=== PATIENT | male | born 1990 | race Caucasian/White ===

== ENCOUNTER 2022-05-20 08:20 | Emergency (ER) | payer MEDICAID, SELFPAY ==
[2022-05-20 08:21] VITALS: BP 198/131; PULSE 96; RESP 18; TEMP 36.6; O2SAT 96; BMI 47.5
--- NOTE | 2022-05-20 08:38 | EDS_ITS ---
HPI History of Present Illness Chief Complaint: Rash Informant: patient Narrative Narrative: 32-year-old male presenting with rash which started today. Patient was repossessing a car that was in the [place]ong. He believes he had contact with poison oak. He has had this in the past. He complains of itching and redness to left upper scalp. He is also noted rash on his left arm and lower back. No fever. No other complaints. Prior similar symptoms: Yes Recent Illness/Hospitalization: No PFSH PFSH Medical History Hx of fracture of wrist Hypertension Home Medications prednisone 10 mg tablet 10 mg PO DAILY #63 tabs 05/20/22 [Rx Last Taken Unknown] Allergy/AdvReac Type Severity Reaction Status Date / Time amoxicillin Allergy Rash Verified 05/20/22 08:24 morphine Allergy Chest Verified 05/20/22 08:24 tightness Penicillins Allergy Rash Verified 05/20/22 08:24 poison oak extract Allergy Rash Verified 05/20/22 08:24 Surgical History History of cardiac radiofrequency ablation Hx of tonsillectomy Social History Smoking Status: Unknown if ever smoked ROS ROS ED Constitutional Constitutional ED: Denies fever(s) Eyes Eyes: Denies change in vision ENT ENT ED: Denies rhinorrhea or sore throat Cardiovascular Cardiovascular: Denies chest pain or palpitations Respiratory/Chest Respiratory/Chest: Denies cough or dyspnea Gastrointestinal Gastrointestinal: Denies abdominal pain, diarrhea, nausea or vomiting Genitourinary Genitourinary ED: Denies dysuria Musculoskeletal Musculoskeletal: Denies myalgias Integumentary Reports rash Neurologic Neurologic: Denies headache(s) Psychiatric Psychiatric: Denies suicidal thoughts EXAM Physical Exam Const Vital Signs: 05/20/22 08:21 Temperature 98 F Temperature Source Temporal Pulse Rate 96 Respiratory Rate 18 Blood Pressure 198/131 H Blood Pressure Mean 153 Pulse Ox 96 Oxygen Delivery Method Room Air Positive well nourished and well developed General Appearance ED: well developed HEENT Reports normocephalic and head/scalp atraumatic HEENT Narrative: left upper forehead/frontal scalp erythematous rash consistent with poison oak Eyes PERRL and EOMs intact bilaterally Neck supple General: Negative for tenderness Chest Wall inspection of chest normal Resp normal respiratory effort and clear to auscultation bilaterally Cardio regular rate and regular rhythm GI non-tender and non-distended Palpation: soft; Negative for guarding or rebound tenderness present no CVA tenderness Extremity normal to inspection Neuro oriented x3 Sensorium / Orientation: alert Psych mental status grossly normal Skin Skin Narrative: rash left forearm and left flank, maculopapular MDM MDM MDM Narrative Medical decision making narrative: Patient was given prednisone. Repeat blood pressure 162/109. Patient states his blood pressure always runs high and he does not currently have a primary care physician. He was given Dr. Reyes international account manager for no doctor for follow-up. Advised return to ED for worsening complaints. Discharge Plan Triage Chief Complaint: Rash ED Provider: Hannah Chaves Dx/Rx/DC Orders Clinical Impression: Poison oak dermatitis Instructions: ED Poison [place] Rash Prescriptions: New prednisone 10 mg tablet 10 mg PO DAILY Qty: 63 0RF Rx Instructions: 60 mg p.o. daily ?3 days, 50 mg p.o. daily ?3 days, 40 mg p.o. daily ?3 days, 30 mg p.o. daily ?3 days, 20 mg p.o. daily ?3 days, 10 mg p.o. daily ?3 days. Primary Care Provider: Care Physician,No Primary Referrals: Jerald Reyes MD [NON-STAFF] - NOT,DEFINED [NON-STAFF] - Disposition Disposition: Home, Self Care
[2022-05-20] MEDS: predniSONE 20 MG Tablet 60 MG PO (08:42)
[2022-05-20 08:45] VITALS: BP 162/109
== END 2022-05-20 09:08 | disposition home or self-care (01) ==
LOC: ED 08:40
PROVIDERS: Emergency Provider Emergency Medicine; Visit Provider Emergency Medicine
DX: L23.7 Allergic contact dermatitis due to plants, except food (principal); I10 Essential (primary) hypertension
CPT/HCPCS: 99283

== ENCOUNTER 2024-02-24 23:26 | Emergency (ER) | payer MEDICAID, SELFPAY ==
[2024-02-24 23:26] VITALS: BP 213/140; PULSE 101; RESP 22; TEMP 36.4; O2SAT 95
--- NOTE | 2024-02-24 23:45 | EKG12_ITS ---
Test Reason : CP Blood Pressure : / mmHG Vent. Rate : 092 BPM Atrial Rate : 092 BPM P-R Int : 132 ms QRS Dur : 118 ms QT Int : 402 ms P-R-T Axes : 075 -05 059 degrees QTc Int : 497 ms Normal sinus rhythm Left ventricular hypertrophy with QRS widening ( R in aVL , Tim product ) Cannot rule out Septal infarct , age undetermined Abnormal ECG Confirmed by MICAELA SANTIZO, IQRA ([id number]), writer editor MAGDALENA GALICIA ([id number]) on 03/01/2024 1:40:57 PM Referred By: THERESA Confirmed By:GAVIOTA HINOJOSA MD
--- NOTE | 2024-02-24 23:49 | RAD_ITS ---
INDICATION: chest pain EXAMINATION/TECHNIQUE: X-RAY - XR Chest 2 Views COMPARISON: None. FINDINGS: LINES/DEVICES: None. LUNGS: No pulmonary edema or focal airspace consolidation. No sizable pleural effusion. No pneumothorax detected. MEDIASTINUM AND CARDIOVASCULAR STRUCTURES: Heart size within normal limits. Mediastinal contours unremarkable. BONES AND SOFT TISSUES: No acute findings. RAD/Chest PA and Lateral IMPRESSION: No radiographic evidence of acute cardiopulmonary disease. Electronically Signed: Aguila Romero MD at 1:12 EDT ,
--- NOTE | 2024-02-24 23:52 | EDS_ITS ---
HPI History of Present Illness Chief Complaint: Chest Pain Informant: patient Narrative Narrative: 34-year-old male presents saying he has been feeling like he is having episodes of SVT for about 10 minutes at a time, frequently for the past 36 hours or so. He is having left-sided chest pain that radiates up into the left side of the base of the neck, it feels like he is getting shocked, and subsequently his heart takes off, racing for about 10 minutes, afterwards he has the residual pain but not as severe and it eventually resolves until another episode. He denies any presyncope or syncope, but has had sweating with this. No dyspnea. He states these are the exact same constellation of symptoms that he had when he was diagnosed with SVT in the past, which apparently resolved with adenosine he was given at 1 point. He states as result of all of this he had 2 ablations, the last one was performed a couple years ago, and he has had minor episodes on occasion since then but pretty rarely until the last 36 hours. Seems to have occurred randomly. Denies any stimulant/drug use lately, recent illness, new medications including [id number]. Patient states that the time his heart is not racing but he just has the more mild version of his shock-like left-sided chest pain. PFSH PFSH Medical History Hx of fracture of wrist Hypertension Home Medications metoprolol tartrate 25 mg tablet 25 mg PO BID #60 tabs 02/25/24 [Rx Last Taken Unknown] Allergy/AdvReac Type Severity Reaction Status Date / Time amoxicillin Allergy Rash Verified 02/24/24 23:29 morphine Allergy Chest Verified 02/24/24 23:29 tightness Penicillins Allergy Rash Verified 02/24/24 23:29 poison oak extract Allergy Rash Verified 02/24/24 23:29 Family History no significant family his Surgical History History of cardiac radiofrequency ablation Hx of tonsillectomy Social History Smoking Status: Unknown if ever smoked ROS ROS ED Constitutional Constitutional ED: Reports sweats; Denies chills or fever(s) Eyes Eyes: Denies change in vision or diplopia ENT ENT ED: Denies rhinorrhea or sore throat Cardiovascular Cardiovascular: Reports chest pain, palpitations and racing heartbeat Respiratory/Chest Respiratory/Chest: Denies cough or dyspnea Gastrointestinal Gastrointestinal: Denies abdominal pain, diarrhea, nausea or vomiting Genitourinary Genitourinary ED: Denies dysuria or hematuria Musculoskeletal Musculoskeletal: Denies back pain or neck pain Integumentary Denies abscess or rash Neurologic Neurologic: Denies headache(s), paresthesias or weakness Psychiatric Psychiatric: Denies suicidal ideation or suicidal thoughts EXAM Physical Exam Const Vital Signs: 02/24/24 23:26 02/24/24 23:47 02/25/24 00:22 Temperature 97.6 F L Temperature Source Temporal Pulse Rate 101 H Respiratory Rate 22 H Respiratory Effort Normal Non-Labored Blood Pressure 213/140 H Blood Pressure Mean 164 Pulse Ox 95 Oxygen Delivery Method Room Air Room Air 02/25/24 00:26 02/25/24 01:00 02/25/24 01:02 Temperature Temperature Source Pulse Rate 89 87 92 Respiratory Rate 22 H 18 18 Respiratory Effort Blood Pressure 170/108 H 141/104 H Blood Pressure Mean 128 116 Pulse Ox 94 92 93 Oxygen Delivery Method Room Air Room Air Room Air Positive well nourished, well developed and obese General Appearance ED: well developed and NAD Nutritional Appearance: obese HEENT Reports moist mucous membranes normocephalic and atraumatic Eyes PERRL and EOMs intact bilaterally Neck full ROM and supple Resp normal respiratory effort and clear to auscultation bilaterally Cardio regular rate, regular rhythm and no murmurs Rate: Negative for bradycardia or tachycardic GI non-tender and non-distended Auscultation: normoactive bowel sounds Palpation: soft Back/Spine no CVA tenderness General Back: other FROM Extremity normal to inspection General Extremety ED: Negative for edema, pulses abnormal or tenderness General Extremity: Negative for edema or pulses abnormal Neuro oriented x3, CN's II-XII intact bilaterally and no sensory deficits noted Sensorium / Orientation: awake and alert Motor Exam: strength 5/5 throughout Skin no rashes or lesions noted and no wounds Heart Score History: Moderately Suspicious ECG: Normal Age: </= 45 years Risk Factors: 1 or 2 Risk Factors Score: 2 MDM MDM MDM Narrative Medical decision making narrative: Patient's EKG appears normal, the rhythm is normal there is no sign of acute injury or ectopy. 2 view chest x-ray obtained given his chest pain, evaluating for unilateral pneumothorax/process, on my interpretation it is negative for anything acute. Initial labs are noted, he has a nonspecific leukocytosis without a left shift, and in normal high-sensitivity troponin I at 10. At this time we are observing him and the plan will be to do a 2-hour repeat troponin measurement, and we are watching his blood pressure which was extremely high at triage 213/140. An hour later, it is 170/108. Unknown if the blood pressure is causing this or if it is reactionary. Will treat it with labetalol while observing for the next set of enzymes. The second troponin measurement returned at 11.2, which is essentially unchanged . He had no events while being observed. His blood pressure is down to 150s/80s. At this time I think it is appropriate to discharge patient home to follow-up with cardiology, he was referred to the local practice since he moved here recently, and I am putting him on metoprolol tartrate 25 twice daily. We discussed reasons to return he is comfortable with that plan. History & Record Review Additional record(s) reviewed:: No prior records Lab Data Attestation: I reviewed the patient's lab results. Labs: Laboratory Results - last 24 hr 02/24/24 23:41 WBC 14.1 H RBC 5.37 Hgb 15.0 Hct 43.9 MCV 81.8 MCH 27.9 MCHC 34.2 RDW Std Deviation 37.6 RDW Coeff of Tonya 12.8 Plt Count 294 MPV 10.3 Immature Gran % (Auto) 0.300 Neut % (Auto) 57.9 Lymph % (Auto) 34.6 [place] % (Auto) 5.1 Eos % (Auto) 1.6 Baso % (Auto) 0.5 Absolute Neuts (auto) 8.2 H Absolute Lymphs (auto) 4.87 H Nucleated RBC % 0 Sodium 137 Potassium 3.7 Chloride 105 Carbon Dioxide 24.0 Anion Gap 8 BUN 14 Creatinine 0.84 Est GFR (MDRD) Af Amer 133 Est GFR (MDRD) Non-Af 110 BUN/Creatinine Ratio 16.6 Glucose 233 H Calcium 8.9 Troponin I High Sens 10 Rhythm Strip Rhythm Strip: Sinus Rhythm Rate: 98 Ectopy: None EKG Initial EKG: Attestation: I personally reviewed and interpreted this EKG as follows: Interpretation: Sinus Rhythm and No Acute Injury Pattern Prior EKG tracings: not available for review Prior: No Prior Discharge Plan Triage Chief Complaint: Chest Pain ED Provider: Christian Negro Dx/Rx/DC Orders Clinical Impression: Heart palpitations, Intermittent left-sided chest pain, Accelerated hypertension Instructions: ED Palpitations Prescriptions: New metoprolol tartrate 25 mg tablet 25 mg PO BID Qty: 60 0RF Primary Care Provider: Care Physician,No Primary Referrals: Birdie Murphy MD [Med Staff - Active Staff] - As soon as possible (call for appt) Disposition Disposition: Home, Self Care
[2024-02-24 23:55] LABS: Absolute Lymphocyte Count 4.87 X10^3/uL (0.83-4.51); Absolute Neutrophil Count 8.2 X10^3/uL (2.0-7.7); Basophil# 0.07 X10^3/uL; Basophil% 0.5 % (0-1); Eosinophil# 0.22 X10^3/uL; Eosinophils% 1.6 % (0-5); Hematocrit 43.9 % (40-54); Lymphocyte # 4.87 X10^3/ul (0.83-4.51); Lymphocyte % 34.6 % (19-41); Mean Corp Hgb Conc 34.2 g/dL (32-36); Mean Corpuscular Hgb 27.9 pg (27.0-32.0); Mean Corpuscular Volume 81.8 fL (80-94); Mean Platelet Vol. 10.3 fl (6.2-12.0); Monocyte# 0.72 X10^3/uL; Monocyte% 5.1 % (0-10); NRBC Flagged by Analyzer 0 % (0-5); Neutrophil # 8.16 X10^3/uL (2.7-7.7); Neutrophil % 57.9 % (47-70); Platelet Count 294 K/mm3 (150-450); RBC Distribution Width CV 12.8 % (11.6-14.6); RBC Distribution Width SD 37.6 fl (35.1-43.9); Red Blood Count 5.37 M/mm3 (4.6-6.2); White Blood Count 14.1 K/mm3 (4.4-11.0)
[2024-02-25 00:14] LABS: Anion Gap 8 (5-15); BUN 14 mg/dL (7-18); BUN/Creat Ratio 16.6 RATIO (10-20); Calcium,Total 8.9 mg/dL (8.5-10.1); Chloride 105 mmol/L (98-107); Creatinine, Serum 0.84 mg/dL (0.70-1.30); EST Glomerular Filtration Rate 110 mL/min (>60); Est Glom Filt Rate - Afr Amer 133 mL/min (>60); Glucose 233 mg/dL (74-106); Potassium 3.7 mmol/L (3.5-5.1); Sodium Level 137 mmol/L (136-145); Troponin-I HS (w/2H Reflex) 10 pg/mL (3.0-78.0)
[2024-02-25 00:23] VITALS: BMI 53.0
[2024-02-25 00:26] VITALS: PULSE 89; RESP 22; O2SAT 94
[2024-02-25] MEDS: Labetalol (Prefilled) 20 MG/4 ML 10 MG IV (00:59)
[2024-02-25 01:00] VITALS: BP 170/108; PULSE 87; RESP 18; O2SAT 92
[2024-02-25 01:02] VITALS: BP 141/104; PULSE 92; RESP 18; O2SAT 93
[2024-02-25 02:55] VITALS: BP 156/88; PULSE 90; RESP 18; TEMP 36.2; O2SAT 94
[2024-02-25 05:35] LABS: Reflex Troponin-HS? (from REC) Y
[2024-02-25 06:54] LABS: Troponin-I HS 11 pg/mL (3.0-78.0)
--- NOTE | 2024-02-25 07:09 | ED.RN ---
SEE DOWNTIME CHARTING FOR D/C
== END 2024-02-25 02:55 | disposition home or self-care (01) ==
PROVIDERS: Emergency Provider Emergency Medicine; Visit Provider Emergency Medicine
DX: R00.2 Palpitations (principal); R07.9 Chest pain, unspecified; I10 Essential (primary) hypertension
CPT/HCPCS: 71046; 80048; 84484; 85025; 93005; 96374; 99284; J7030; A4216

== ENCOUNTER 2024-03-19 05:18 | Emergency (ER) | payer MEDICAID, SELFPAY ==
[2024-03-19 05:19] VITALS: BP 211/125; PULSE 102; RESP 18; TEMP 36.1; O2SAT 93; BMI 56.2
[2024-03-19 05:27] VITALS: BP 178/110
--- NOTE | 2024-03-19 05:30 | EDS_ITS ---
HPI History of Present Illness Chief Complaint: Nosebleed Informant: patient Narrative Narrative: Patient presents secondary to nosebleed. He has had 3 nosebleeds this week. He states Friday night and earlier this morning he had heavy bleeding from the right nare. After about 20 minutes of pressure he was able to get bleeding controlled. Or this morning he has had blood from both nares. 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 He states that his head did hit the headrest, but he has had no headache or other symptoms of a head injury. He denies URI symptoms. [facility] Medical History Hx of fracture of wrist Hypertension Home Medications ?Medication ?Instructions ?Recorded ?Last Taken ?Type NK 03/19/24 Unknown History Allergy/AdvReac Type Severity Reaction Status Date / Time amoxicillin Allergy Rash Verified 03/19/24 05:19 morphine Allergy Chest Verified 03/19/24 05:19 tightness Penicillins Allergy Rash Verified 03/19/24 05:19 poison oak extract Allergy Rash Verified 03/19/24 05:19 Surgical History History of cardiac radiofrequency ablation Hx of tonsillectomy Social History Smoking Status: Never smoker ROS ROS ED Constitutional Constitutional ED: Denies chills or fever(s) Eyes Eyes: Denies discharge from eye(s) ENT ENT ED: Reports other Details: Epistaxis right nare ; Denies discharge from eye(s), rhinorrhea or sore throat Cardiovascular Cardiovascular: Denies chest pain Respiratory/Chest Respiratory/Chest: Denies cough or dyspnea Gastrointestinal Gastrointestinal: Denies abdominal pain, nausea or vomiting Musculoskeletal Musculoskeletal: Denies back pain or extremity pain Integumentary Denies Abrasions or rash Neurologic Neurologic: Denies headache(s) or weakness Psychiatric Psychiatric: Denies anxiety or depression Allergic/Immunologic Allergic/Immunologic ED: Denies lip swelling or urticaria EXAM Physical Exam Const Vital Signs: 03/19/24 05:19 03/19/24 05:27 Temperature 97 F L Temperature Source Temporal Pulse Rate 102 H Respiratory Rate 18 Blood Pressure 211/125 H 178/110 H Blood Pressure Mean 153 132 Pulse Ox 93 Positive obese Nutritional Appearance: obese HEENT HEENT Narrative: Bleeding seems controlled at this time. Dried blood noted in the bilateral nares. Eyes EOMs intact bilaterally Chest Wall inspection of chest normal and palpation of chest normal Resp normal respiratory effort and clear to auscultation bilaterally Cardio regular rate and regular rhythm GI non-tender Palpation: soft Extremity normal to inspection Neuro oriented x3 and no sensory deficits noted Motor Exam: strength 5/5 throughout Psych mental status grossly normal Skin no rashes or lesions noted MDM MDM MDM Narrative Medical decision making narrative: [place] saturated in Cetacaine and Afrin is placed in the right nare. This was removed and right naris examined. Mild amount of blood noted along the turbinates. No focal source of bleeding identified. Merisel packing placed without difficulty. Patient referred to ENT for follow-up on Friday. Return instructions given. Discharge Plan Triage Chief Complaint: Nosebleed ED Provider: Keerthi Long Dx/Rx/DC Orders Clinical Impression: Epistaxis Instructions: ED Epistaxis (Adult) Prescriptions: No Action NK Primary Care Provider: Care Physician,No Primary Referrals: Olegario Car MD [Med Staff - Active Staff] - 3-5 Days Care Physician,No Primary [Primary Care Provider] - Print Language: Uzbek Disposition Disposition: Home, Self Care
[2024-03-19] MEDS: Oxymetazoline 0.05% 1 SPRAY SPRAY.BTL 2 SPRAY NASAL (05:32)
[2024-03-19] MEDS: Tetracaine/Benzocaine/Butamben 1 APPLIC TOPICAL (05:33)
[2024-03-19 06:24] VITALS: BP 159/98; PULSE 93; RESP 18; TEMP 36.7; O2SAT 98
== END 2024-03-19 06:24 | disposition home or self-care (01) ==
PROVIDERS: Emergency Provider Emergency Medicine; Visit Provider Emergency Medicine
DX: R04.0 Epistaxis (principal); I10 Essential (primary) hypertension; E66.9 Obesity, unspecified
CPT/HCPCS: 30901; 99282

== ENCOUNTER 2024-04-27 15:21 | Emergency (ER) | payer SELFPAY ==
[2024-04-27 15:21] VITALS: BP 185/121; PULSE 98; RESP 20; TEMP 36.1; O2SAT 99; BMI 55.3
--- NOTE | 2024-04-27 17:58 | EDS_ITS ---
HPI History of Present Illness Chief Complaint: Rash Informant: patient Narrative Narrative: 34-year-old male presenting to the emergency room with a chief complaint of poison hiral. Patient states that on Friday he went to repossessed a vehicle that was in the [place]ong. He did not realize he had come into contact with poison hiral. He states that he is very allergic to poison hiral and on Friday began to have a rash which is spread buttocks arms legs. He notes blisters that are weeping. He has had this type of reaction before. He states he is not a diabetic. PFSH [facility] Medical History Hx of fracture of wrist Hypertension Home Medications ?Medication ?Instructions ?Recorded ?Last Taken ?Type prednisone 20 mg tablet See Rx Instructions .Route 04/27/24 Unknown Rx .COMPLEX #24 tabs Allergy/AdvReac Type Severity Reaction Status Date / Time amoxicillin Allergy Rash Verified 04/27/24 15:23 morphine Allergy Chest Verified 04/27/24 15:23 tightness Penicillins Allergy Rash Verified 04/27/24 15:23 poison oak extract Allergy Rash Verified 04/27/24 15:23 Surgical History History of cardiac radiofrequency ablation Hx of tonsillectomy Social History Smoking Status: Never smoker ROS ROS ED Constitutional Constitutional ED: Denies chills, fever(s) or weight loss Eyes Eyes: Denies change in vision or diplopia ENT ENT ED: Denies ear pain, rhinorrhea or sore throat Cardiovascular Cardiovascular: Denies chest pain, orthopnea, palpitations or racing heartbeat Respiratory/Chest Respiratory/Chest: Denies cough, dyspnea or orthopnea Gastrointestinal Gastrointestinal: Denies abdominal pain, diarrhea, nausea or vomiting Genitourinary Genitourinary ED: Denies dysuria, hematuria or urinary frequency Musculoskeletal Musculoskeletal: Denies arthralgias or myalgias Integumentary Reports rash; Denies abscess or Abrasions Neurologic Neurologic: Denies headache(s) or weakness Psychiatric Psychiatric: Denies anxiety, depression, suicidal ideation or suicidal thoughts Endocrine Endocrinology: Denies polydipsia, polyphagia or polyuria Allergic/Immunologic Allergic/Immunologic ED: Denies mouth swelling, tongue swelling or urticaria EXAM Physical Exam Const Vital Signs: 04/27/24 15:21 04/27/24 18:31 Temperature 96.9 F L Temperature Source Temporal Pulse Rate 98 Respiratory Rate 20 H Blood Pressure 185/121 H 160/110 H Blood Pressure Mean 142 126 Pulse Ox 99 Oxygen Delivery Method Room Air Positive well nourished, well developed and obese General Appearance ED: well developed and NAD Nutritional Appearance: obese HEENT Reports normocephalic, head/scalp atraumatic and moist mucous membranes Eyes PERRL and EOMs intact bilaterally Neck no lymphadenopathy, supple and no JVD Resp normal respiratory effort and clear to auscultation bilaterally Cardio regular rate, regular rhythm and no murmurs GI normal to inspection, nondistended, normoactive bowel sounds and non-tender Palpation: soft Back/Spine no CVA tenderness and normal ROM Extremity normal to inspection General Extremety ED: Negative for edema General Extremity: Negative for edema Neuro oriented x3 and CN's II-XII intact bilaterally Sensorium / Orientation: alert Motor Exam: strength 5/5 throughout Psych mental status grossly normal Mood & Affect: Negative for depressed or tearful Skin no wounds Skin Narrative: Patient has blisters some in a linear like pattern covered in calamine particular the arms and legs and buttock. No evidence of secondary infection at this time. Rash does seem to be consistent with a [place] dermatitis MDM MDM MDM Narrative Medical decision making narrative: Differential diagnosis includes wrist dermatitis, other allergic reaction, bacterial infection, disseminated viral exanthem like herpes. I do not see evidence of secondary bacterial or viral infection at this time. Patient will be given a dose of Kenalog as this has worked well to initially control his symptoms in the past. I explained to him that the Kenalog will generally wear off before the oils have resolved and for this reason I would recommend prednisone. Using shared decision making we will administer both. Patient is comfortable with this plan will return if worsening or concerns Patient's blood pressure is noted to be elevated today. Repeat blood pressure from triage was 160/110. He has been told he has high blood pressure in the past. I am going to recommend that he follow-up with primary care. I would recommend that he obtain several readings/data points for them to evaluate and follow-up. History & Record Review Discussion w/independent historian: Patient Lab Data Attestation: I reviewed the patient's lab results. Discharge Plan Triage Chief Complaint: Rash ED Provider: Darian Rodriguez Dx/Rx/DC Orders Clinical Impression: Rhus dermatitis, Hypertension Instructions: ED Hypertension, To Be Confirmed, ED Poison H[place] Rash Prescriptions: New prednisone 20 mg tablet See Rx Instructions .ROUTE .COMPLEX Qty: 24 0RF Rx Instructions: 3 tabs p.o. daily x 4 days then 2 tabs p.o. daily x 4 days then 1 tab p.o. daily x 4 days Primary Care Provider: Care Physician,No Primary Referrals: Roe Barboza MD [Med Staff - Security Installation Technician] - 1-2 Weeks (for hypertension evaluation) Care Physician,No Primary [Primary Care Provider] - Activity Restrictions/Additional Instructions: Your blood pressure is elevated today. I would recommend you monitor this. I would recommend you follow-up with primary care with several blood pressure readings to evaluate whether or not you should be treated long-term for hypertension. Print Language: Slovak Disposition Disposition: Home, Self Care
[2024-04-27] MEDS: Triamcinolone Acetonide 40 MG/ML Vial 80 MG IM (18:28)
[2024-04-27 18:31] VITALS: BP 160/110
[2024-04-27 18:40] VITALS: BP 160/110; PULSE 95; RESP 16; TEMP 36.9; O2SAT 99
== END 2024-04-27 18:57 | disposition home or self-care (01) ==
PROVIDERS: Emergency Provider Emergency Medicine; Visit Provider Emergency Medicine
DX: L23.7 Allergic contact dermatitis due to plants, except food (principal); I10 Essential (primary) hypertension
CPT/HCPCS: 96372; 99282